=== PATIENT | female | born 1990 | race Caucasian/White ===

== ENCOUNTER 2017-01-03 14:52 | Outpatient (CLI) | payer OTHER, BC ==
[~2017-01-03] VITALS: Ht 162.6 cm; Wt 62.7 kg
[2017-01-03 16:14] LABS: AMNI OBC PASS; AMNISURE NEGATIVE (NEGATIVE)
[2017-01-03] MEDS ORDERED: PREN-53 PO (16:35)
== END 2017-01-03 16:45 | disposition home or self-care (01) ==
LOC: LDOP 14:52
PROVIDERS: ATTEND Obstetrics & Gynecology Gynecology
DX: O26.893 Other specified pregnancy related conditions, third trimester (principal); R10.9 Unspecified abdominal pain; Z3A.32 32 weeks gestation of pregnancy
CPT/HCPCS: 59025; 81003; 84112; 99201; G0463

== ENCOUNTER 2017-01-28 21:30 | Outpatient (CLI) | payer OTHER, BC ==
[~2017-01-28 21:30] MED LIST: PREN-53 PO
[2017-01-28 22:13] VITALS: BP 116/67
== END 2017-01-28 22:20 | disposition home or self-care (01) ==
LOC: LDOP 21:30
PROVIDERS: ATTEND Obstetrics & Gynecology Gynecology
DX: O26.893 Other specified pregnancy related conditions, third trimester (principal); O62.9 Abnormality of forces of labor, unspecified; O99.513 Diseases of the respiratory system complicating pregnancy, third trimester; O99.343 Other mental disorders complicating pregnancy, third trimester; F32.9 Major depressive disorder, single episode, unspecified; J45.909 Unspecified asthma, uncomplicated; R10.9 Unspecified abdominal pain; Z3A.34 34 weeks gestation of pregnancy
CPT/HCPCS: 59025; 99211; G0463

== ENCOUNTER 2017-02-08 23:23 | Observation (INO) | payer OTHER, BC ==
[~2017-02-08] VITALS: Ht 162.6 cm; Wt 65.0 kg
[2017-02-08 23:23] VITALS: BP 131/78
[2017-02-09] MEDS ORDERED: LACTATED RINGERS 1,000 ML IVBOLUS ONE
[2017-02-09] MEDS ORDERED: FENTANYL PF 100 MCG/2ML ONE ×2 (00:08→01:43)
[2017-02-09 00:10] LABS: HEMATOCRIT 30.7 % (34.6-47.8); HEMOGLOBIN 10.3 g/dL (11.7-16.4)
[2017-02-09] MEDS ORDERED: METOCLOPRAMIDE 5 MG/ML, 2ML ONE (00:25)
[2017-02-09] MEDS ORDERED: SODIUM CITRATE/CITRIC ACID 30 ML UDC ONE (00:25)
[2017-02-09] MEDS ORDERED: HYDROcodone/APAP 7.5-325MG/15ML UDC PO PRN (00:30)
[2017-02-09] MEDS ORDERED: ALBUTEROL SULFATE 2.5 MG/3 ML NPPB PRN (00:30)
[2017-02-09] MEDS ORDERED: ONDANSETRON 2MG/ML, 2ML IVPush PRN (00:30)
[2017-02-09] MEDS ORDERED: hydrALAzine 20 MG/ML, 1ML IV PRN (00:30)
[2017-02-09] MEDS ORDERED: PROMETHAZINE 25 MG/ML, 1ML IV PRN (00:30)
[2017-02-09] MEDS ORDERED: MIDAZOLAM 1 MG/ML, 2ML IV PRN (00:30)
[2017-02-09] MEDS ORDERED: OXYcodone 5 MG/5 ML ORAL.SOL UDC PO PRN (00:30)
[2017-02-09] MEDS ORDERED: EPHEDRINE 50 MG/ML, 1ML IVPush PRN (00:30)
[2017-02-09] MEDS ORDERED: LABETALOL 5MG/ML, 20ML IV PRN (00:30)
[2017-02-09] MEDS ORDERED: HYDROmorphone 1 MG/ML, 1ML IV PRN (00:30)
[2017-02-09] MEDS ORDERED: MEPERIDINE/PF 25MG/0.5ML IVPush PRN (00:30)
[2017-02-09] MEDS ORDERED: FENTANYL PF 100 MCG/2ML IV PRN (00:30)
[2017-02-09] MEDS ORDERED: NEWBORN KIT ONE (00:33)
[2017-02-09 02:11] LABS: HEMOGLOBIN 10.2 g/dL (11.7-16.4)
[2017-02-09 02:16] LABS: HEMATOCRIT 30.4 % (34.6-47.8); WHITE BLOOD COUNT 8.3 x10^3/uL (3.4-10)
[2017-02-09] MEDS ORDERED: BUTORPHANOL 1 MG/ML, 1ML IVPush ONE (03:00)
== END 2017-02-09 08:15 | disposition home or self-care (01) ==
LOC: LDOP 23:23 → LDIP 02-09 01:40
PROVIDERS: ADMIT Obstetrics & Gynecology Gynecology; ATTEND Obstetrics & Gynecology Gynecology
DX: O62.9 Abnormality of forces of labor, unspecified (principal); O99.513 Diseases of the respiratory system complicating pregnancy, third trimester; J45.909 Unspecified asthma, uncomplicated; O99.343 Other mental disorders complicating pregnancy, third trimester; F41.9 Anxiety disorder, unspecified; F32.9 Major depressive disorder, single episode, unspecified; O43.193 Other malformation of placenta, third trimester; Z3A.36 36 weeks gestation of pregnancy
CPT/HCPCS: 36415; 59025; 81003; 85014; 85018; 85025; 86850; 86900; 87086; G0378; J7120; 96361; 96374; 96375

== ENCOUNTER 2017-02-09 18:44 | Outpatient (CLI) | payer OTHER, BC ==
[~2017-02-09] VITALS: Ht 162.6 cm; Wt 65.0 kg
[2017-02-09 19:14] VITALS: BP 113/69
== END 2017-02-09 20:45 | disposition home or self-care (01) ==
LOC: LDOP 18:44
PROVIDERS: ATTEND Obstetrics & Gynecology Gynecology
DX: O26.893 Other specified pregnancy related conditions, third trimester (principal); O43.123 Velamentous insertion of umbilical cord, third trimester; O62.9 Abnormality of forces of labor, unspecified; O47.03 False labor before 37 completed weeks of gestation, third trimester; O99.343 Other mental disorders complicating pregnancy, third trimester; O99.513 Diseases of the respiratory system complicating pregnancy, third trimester; F32.9 Major depressive disorder, single episode, unspecified; J45.909 Unspecified asthma, uncomplicated; R10.9 Unspecified abdominal pain; Z3A.36 36 weeks gestation of pregnancy
CPT/HCPCS: 59025; 99211; G0463

== ENCOUNTER 2017-02-13 22:22 | Inpatient (IN) | payer OTHER, BC ==
[~2017-02-13] VITALS: Ht 162.6 cm; Wt 65.0 kg
[2017-02-13] MEDS ORDERED: OXYTOCIN 30U/ 0.9% NaCL 500ML 500 ML IV SCH (23:06)
[2017-02-13] MEDS: LACTATED RINGERS 1,000 ML IV SCH ×4 (23:06→23:51)
[2017-02-13] MEDS ORDERED: METOCLOPRAMIDE 5 MG/ML, 2ML ONE (23:22)
[2017-02-13] MEDS ORDERED: NEWBORN KIT ONE (23:22)
[2017-02-13] MEDS ORDERED: SODIUM CITRATE/CITRIC ACID 30 ML UDC ONE (23:22)
[2017-02-13] MEDS ORDERED: LACTATED RINGERS 1,000 ML IVBOLUS ONE (23:30)
[2017-02-13] MEDS ORDERED: SODIUM CITRATE/CITRIC ACID 30 ML UDC PO ONE (23:30)
[2017-02-13] MEDS ORDERED: METOCLOPRAMIDE 5 MG/ML, 2ML IV ONE (23:30)
[2017-02-13 23:46] LABS: HEMATOCRIT 30.7 % (34.6-47.8); HEMOGLOBIN 10.2 g/dL (11.7-16.4); WHITE BLOOD COUNT 8.7 x10^3/uL (3.4-10)
[2017-02-13] MEDS: OXYTOCIN 30U/ 0.9% NaCL 500ML 500 ML IV SCH (23:51)
[2017-02-13] MEDS ORDERED: HYDROmorphone 2 MG/ML, 1ML ONE (23:58)
[2017-02-13] MEDS ORDERED: FENTANYL PF 100 MCG/2ML ONE (23:58)
[2017-02-14] VITALS (7 sets, daily range): BP systolic 95–110; BP diastolic 50–63
[2017-02-14] MEDS ORDERED: MISOPROSTOL 200 MCG TABLET PR PRN
[2017-02-14] MEDS ORDERED: MEPERIDINE/PF 100 MG/ML IVPush PRN
[2017-02-14] MEDS ORDERED: BISACODYL 10 MG SUPP PR PRN
[2017-02-14] MEDS ORDERED: OXYcodone/APAP 5/325MG TABLET PO PRN
[2017-02-14] MEDS ORDERED: CEFAZOLIN 1,000 MG ONE
[2017-02-14] MEDS ORDERED: ACETAMINOPHEN 325 MG TABLET PO PRN ×2
[2017-02-14] MEDS ORDERED: CALCIUM CARBONATE 500 MG TAB.CHEW PO PRN
[2017-02-14] MEDS ORDERED: DIPH,PERTUSS(ACELL),TET VAC/PF NC IM-VACC PRN
[2017-02-14] MEDS ORDERED: GLYCERIN ADULT SUPP PR PRN
[2017-02-14] MEDS ORDERED: IBUPROFEN 600 MG TABLET PO PRN
[2017-02-14] MEDS ORDERED: MEPERIDINE/PF 50 MG/ML IVPush PRN
[2017-02-14] MEDS ORDERED: ONDANSETRON 2MG/ML, 2ML ONE
[2017-02-14] MEDS ORDERED: METHYLERGONOVINE 0.2 MG/ML IM PRN
[2017-02-14] MEDS ORDERED: OXYTOCIN 30U/ 0.9% NaCL 500ML 500 ML ONE (00:06)
[2017-02-14] MEDS ORDERED: MEPERIDINE/PF 50 MG/ML ONE (00:34)
[2017-02-14] MEDS ORDERED: KETOROLAC 30 MG/1 ML ONE (01:43)
[2017-02-14] MEDS ORDERED: KETOROLAC 30 MG/1 ML IVPush ONE (02:00)
[2017-02-14] MEDS ORDERED: ONDANSETRON 2MG/ML, 2ML IV PRN ×2 (02:00)
[2017-02-14] MEDS ORDERED: HYDROcodone/APAP 7.5-325MG/15ML UDC PO PRN (02:00)
[2017-02-14] MEDS ORDERED: FENTANYL PF 100 MCG/2ML IVPush PRN (02:00)
[2017-02-14] MEDS ORDERED: HYDROmorphone 2 MG/ML, 1ML IV PRN (02:00)
[2017-02-14] MEDS: LACTATED RINGERS 1,000 ML IV SCH ×7 (07:06→23:51)
[2017-02-14] MEDS ORDERED: PRENATAL VIT/IRON/FA 1 EACH TABLET ONE (07:49)
[2017-02-14] MEDS: DOCUSATE 100 MG CAPSULE PO PRN ×2 (07:56→19:39)
[2017-02-14] MEDS: KETOROLAC 30 MG/1 ML IV SCH ×4 (07:56→19:38)
[2017-02-14] MEDS: PRENATAL VIT/IRON/FA 1 EACH TABLET PO SCH (07:56)
[2017-02-14] MEDS: OXYcodone/APAP 5/325MG TABLET PO PRN ×2 (08:45→12:08)
[2017-02-14] MEDS ORDERED: BUSPIRONE 5 MG TABLET PO SCH (09:00)
[2017-02-14 09:01] LABS: HEMATOCRIT 27.7 % (34.6-47.8); HEMOGLOBIN 9.3 g/dL (11.7-16.4); WHITE BLOOD COUNT 9.8 x10^3/uL (3.4-10)
[2017-02-14] MEDS: OXYTOCIN 30U/ 0.9% NaCL 500ML 500 ML IV SCH ×2 (09:51→19:51)
[2017-02-14] MEDS: OXYcodone/APAP 10/325MG TABLET PO PRN ×2 (15:30→20:36)
[2017-02-15] MEDS: OXYcodone/APAP 10/325MG TABLET PO PRN ×4 (00:57→12:29)
[2017-02-15] MEDS: KETOROLAC 30 MG/1 ML IV SCH ×3 (01:34→14:00)
[2017-02-15] MEDS: SIMETHICONE 80 MG CHEW TAB PO PRN ×2 (01:35→13:07)
[2017-02-15] MEDS ORDERED: OXYC-302 PO (03:18)
[2017-02-15] MEDS ORDERED: IBUP-1222 PO (03:20)
[2017-02-15] MEDS: OXYTOCIN 30U/ 0.9% NaCL 500ML 500 ML IV SCH (05:51)
[2017-02-15] MEDS: LACTATED RINGERS 1,000 ML IV SCH ×2 (05:51→07:51)
[2017-02-15 08:00] VITALS: BP 93/59
[2017-02-15] MEDS: PRENATAL VIT/IRON/FA 1 EACH TABLET PO SCH (08:07)
[2017-02-15] MEDS: DOCUSATE 100 MG CAPSULE PO PRN (08:07)
== END 2017-02-15 15:15 | disposition home or self-care (01) | DRG 765 ==
LOC: LDOP 22:22 → LDIP 23:09 → 2NW 02-14 02:20
PROVIDERS: ADMIT Obstetrics & Gynecology Gynecology; ATTEND Obstetrics & Gynecology Gynecology
PROC: 10D00Z1 Extraction of Products of Conception, Low, Open Approach (ICD-10-PCS; principal; 2017-02-14)
DX: O34.211 Maternal care for low transverse scar from previous cesarean delivery (principal); O44.43 Low lying placenta NOS or without hemorrhage, third trimester; F32.9 Major depressive disorder, single episode, unspecified; O69.81X0 Labor and delivery complicated by cord around neck, without compression, not applicable or unspecified; J45.909 Unspecified asthma, uncomplicated; O42.92 Full-term premature rupture of membranes, unspecified as to length of time between rupture and onset of labor; F41.9 Anxiety disorder, unspecified; O99.52 Diseases of the respiratory system complicating childbirth; Z3A.37 37 weeks gestation of pregnancy; Z37.0 Single live birth
CPT/HCPCS: 36415; 85025; 86900; 89060; J0690; J1170; J1885; J2175; J2405; J3010; C1765; J2590; J2765; Q0114

== ENCOUNTER 2018-06-30 05:46 | Emergency (ER) | payer BC ==
[~2018-06-30] VITALS: Ht 162.6 cm; Wt 56.6 kg
[~2018-06-30 05:46] MED LIST changes: +IBUP-1222 PO; +OXYC-302 PO
[2018-06-30 05:47] VITALS: BP 133/87
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
--- NOTE | 2018-06-30 06:42 | NUR ---
Patient/Caregiver given discharge instructions and they have confirmed that they understand the instructions. Patient ambulatory with steady gait.
== END 2018-06-30 06:44 | disposition home or self-care (01) ==
LOC: ED 06:35
DX: L03.114 Cellulitis of left upper limb (principal); L24.5 Irritant contact dermatitis due to other chemical products
CPT/HCPCS: 99283

== ENCOUNTER 2020-08-06 03:57 | Emergency (ER) | payer BC ==
[~2020-08-06] VITALS: Ht 162.6 cm; Wt 58.5 kg
[~2020-08-06 03:57] MED LIST changes: -OXYC-302 PO; +OXYC1TAB14 PO
--- NOTE | 2020-08-06 05:01 | NUR ---
PT SITTING UPRIGHT ON AUTUMN SANTIAGO VSS. PT DENIES ANY NEEDS AT THIS TIME. CALL LIGHT IN REACH
[2020-08-06 05:54] VITALS: BP 128/80
== END 2020-08-06 05:56 | disposition home or self-care (01) ==
LOC: ED 05:30
DX: S06.0X0A Concussion without loss of consciousness, initial encounter (principal); R11.0 Nausea; W22.8XXA Striking against or struck by other objects, initial encounter; Y93.89 Activity, other specified; Y92.89 Other specified places as the place of occurrence of the external cause; Y99.8 Other external cause status
CPT/HCPCS: 70450; 99284

== ENCOUNTER 2020-08-11 15:09 | Emergency (ER) | payer BC ==
[~2020-08-11] VITALS: Ht 162.6 cm; Wt 58.8 kg
--- NOTE | 2020-08-11 15:35 | NUR ---
PT C/O LEFT SIDE HEAD PAIN. PT STATES SHE HAS HIT HER HEAD A FEW TIMES OVER THE LAST FEW WEEKS DUE TO BEING DIZZY. PT RECENTLY DIAGNOSED WITH A RIGHT INNER EAR ISSUE AND HAS SEEN AN ENT FOR IT. PT RATES PAIN 4-5/10. PT HAS BEEN MEDICATING AT HOME WITH IBUPROFEN AND TYLENOL BUT HAS NOT HAD RELIEF FROM THE PAIN. PT ALSO EXPERIENCING CHILLS AND FATIGUE LATELY. PT UNSURE OF FEVERS SHE HAS BEEN CONTINUOSLY MEDICATING FOR THE HEADACHE.
--- NOTE | 2020-08-11 15:59 | NUR ---
DR PRECIADO BEDSIDE
[2020-08-11 16:26] LABS: HCT (SEDRATE) 41.6 % (34.6-47.8)
[2020-08-11 16:27] LABS: BASOPHILS % (AUTO) 1 % (0-1); EOSINOPHILS % (AUTO) 1 % (1-7); LYMPHOCYTES % (AUTO) 18 % (22-44); MEAN CORPUSCULAR HEMOGLOBIN 30.8 pg (27.0-34.8); MEAN CORPUSCULAR HGB CONC 33.9 g/dL (32.4-35.8); MEAN PLATELET VOLUME 7.5 fL (7.4-10.4); MONOCYTES % (AUTO) 5 % (2-9); NEUTROPHILS % (AUTO) 75 % (42-75); PLATELET COUNT 286 x10^3/uL (130-400); RED BLOOD COUNT 4.59 x10^6/uL (3.82-5.3); RED CELL DISTRIBUTION WIDTH 12.5 % (9.6-15.2)
[2020-08-11 16:28] LABS: MICROSCOPIC AUTO
[2020-08-11 16:30] LABS: MD NO
[2020-08-11 16:39] LABS: ALANINE AMINOTRANSFERASE 18 U/L (12-78); ALBUMIN 4.5 g/dL (3.4-5.0); ANION GAP 9 mmol/L (5-15); C-REACTIVE PROTEIN, QUANT 0.49 mg/dL (0.02-0.49); CALCIUM 8.9 mg/dL (8.5-10.1); CHLORIDE 108 mmol/L (98-107); CREATININE 0.68 mg/dL (0.55-1.02)
[2020-08-11 16:49] LABS: ALKALINE PHOSPHATASE 54 U/L (45-117); BILIRUBIN,TOTAL 0.4 mg/dL (0.2-1.0); TOTAL PROTEIN 8.1 g/dL (6.4-8.2)
[2020-08-11 17:02] VITALS: BP 107/62
--- NOTE | 2020-08-11 17:49 | NUR ---
PT REC'VD DISCHARGE INSRUCTIONS AND EDUCATION. PT HAD NO FURTHER QUESTIONS.
--- NOTE | 2020-08-11 18:03 | NUR ---
PT AMBULATED TO OH AREA, STEADY GAIT
== END 2020-08-11 18:06 | disposition home or self-care (01) ==
LOC: ED 17:05
DX: R51.9 Headache, unspecified (principal); M79.2 Neuralgia and neuritis, unspecified; R11.0 Nausea; Z88.6 Allergy status to analgesic agent
CPT/HCPCS: 36415; 80053; 81001; 84443; 85025; 85651; 86140; 99283

== ENCOUNTER → 2020-08-30 | Outpatient (CLI) | payer BC ==
[~2020-08-30] MED LIST changes: +ALPR1TAB2 PO
== END | disposition home or self-care (01) ==
LOC: CFH 15:47
PROVIDERS: ATTEND Psychiatry & Neurology Neurology
DX: H81.21 Vestibular neuronitis, right ear (principal); F07.81 Postconcussional syndrome
CPT/HCPCS: 70551

== ENCOUNTER → 2020-09-04 | Outpatient (CLI) | payer BC | END | disposition home or self-care (01) | LOC: CVU 07:21 | PROVIDERS: ATTEND Psychiatry & Neurology Neurology | DX: S09.90XA Unspecified injury of head, initial encounter (principal); I65.23 Occlusion and stenosis of bilateral carotid arteries; R42 Dizziness and giddiness; F07.81 Postconcussional syndrome; X58.XXXA Exposure to other specified factors, initial encounter; Y93.89 Activity, other specified; Y92.89 Other specified places as the place of occurrence of the external cause; Y99.8 Other external cause status | CPT/HCPCS: 93880; 95819 ==